=== PATIENT | male | born 1955 | race Caucasian/White ===

== ENCOUNTER → 2020-09-10 | Outpatient (CLI) | payer OTHER ==
[~2020-09-10] MED LIST: ASPIRIN EC81 MG PO; FAMOTIDINE40 MG PO; GABAPENTIN600 MG PO; HYDROCODON-ACE1 EAC2 PO; JARDIANCE25 MG PO; LEVOTHYROXINE75 MCG PO; LISINOPRIL20 MG PO; MELOXICAM15 MG PO; METOPROLOL SUCC25 MG PO; PROAIR HFA8.5 GM PO; PROPRANOLOL HCL10 MG PO; TIZANIDINE HCL4 MG PO; TOPROL XL50 MG PO; TRAZODONE HCL50 MG PO; VITAMIN D21250 MCG PO
== END ==
LOC: HEART CORB 09:08
DX: I10 Essential (primary) hypertension (principal); R07.2 Precordial pain; R06.02 Shortness of breath; I07.1 Rheumatic tricuspid insufficiency
CPT/HCPCS: 93306

== ENCOUNTER 2020-10-06 11:39 | Observation (INO) | payer OTHER ==
[~2020-10-06] VITALS: Ht 182.9 cm; Wt 117.9 kg
[2020-10-06 12:12] LABS: HEMOGLOBIN 15.9 gm/dl (14.0-17.5); RED BLOOD COUNT 5.3 M/UL (4.20-5.50); WHITE BLOOD COUNT 8.9 K/UL (4.5-11.0)
[2020-10-06 12:41] LABS: BUN/CREATININE RATIO 22 (0-10)
[2020-10-06] MEDS ORDERED: MELOXICAM15 MG PO (14:58)
[2020-10-06] MEDS ORDERED: TIZANIDINE HCL4 MG PO (14:59)
[2020-10-06] MEDS ORDERED: PROPRANOLOL HCL10 MG PO (14:59)
[2020-10-06] MEDS ORDERED: TRAZODONE HCL50 MG PO (15:15)
[2020-10-06] MEDS ORDERED: GABAPENTIN600 MG PO (15:15)
[2020-10-06] MEDS ORDERED: HYDROCODON-ACE1 EAC2 PO (15:16)
[2020-10-06] MEDS ORDERED: METOPROLOL SUCC25 MG PO (15:17)
[2020-10-06] MEDS ORDERED: LISINOPRIL20 MG PO (15:17)
[2020-10-06] MEDS ORDERED: PROAIR HFA8.5 GM PO (15:18)
[2020-10-06] MEDS ORDERED: FAMOTIDINE40 MG PO (15:19)
[2020-10-06] MEDS ORDERED: LEVOTHYROXINE75 MCG PO (15:20)
[2020-10-06] MEDS ORDERED: JARDIANCE25 MG PO (15:20)
[2020-10-06] MEDS ORDERED: VITAMIN D21250 MCG PO (15:22)
[2020-10-06] MEDS ORDERED: ASPIRIN EC81 MG PO (15:23)
[2020-10-07 01:11] LABS: HEMOGLOBIN 14.8 gm/dl (14.0-17.5); RED BLOOD COUNT 4.99 M/UL (4.20-5.50); WHITE BLOOD COUNT 8.4 K/UL (4.5-11.0)
[2020-10-07 01:38] LABS: BUN/CREATININE RATIO 23 (0-10)
[2020-10-07] MEDS ORDERED: TOPROL XL50 MG PO (16:25)
[2020-10-08 04:46] LABS: HEMOGLOBIN 14.9 gm/dl (14.0-17.5); RED BLOOD COUNT 5.04 M/UL (4.20-5.50); WHITE BLOOD COUNT 9.1 K/UL (4.5-11.0)
[2020-10-08 05:27] LABS: BUN/CREATININE RATIO 24 (0-10)
== END 2020-10-08 14:00 | disposition home or self-care (01) ==
LOC: ER1 11:39 → M/S 14:25 → CDU 14:25 → M/S 14:25
PROVIDERS: Emergency Medicine; Internal Medicine; Physician Assistant; ADMIT Internal Medicine
DX: I20.9 Angina pectoris, unspecified (principal); I47.2 Ventricular tachycardia; I10 Essential (primary) hypertension; E78.5 Hyperlipidemia, unspecified; E11.9 Type 2 diabetes mellitus without complications; E66.9 Obesity, unspecified; Z88.5 Allergy status to narcotic agent; Z20.822 Contact with and (suspected) exposure to COVID-19; Z95.9 Presence of cardiac and vascular implant and graft, unspecified; Z82.49 Family history of ischemic heart disease and other diseases of the circulatory system
CPT/HCPCS: 36415; 71045; 80048; 80053; 82550; 82553; 82962; 83735; 83874; 84100; 84439; 84443; 84484; 85025; 85027; 93005; 93270; 99152; 99153; 99285; C1769; C1887; G0378; J1644; J2250; J3010; J7040; Q9967; U0002